=== PATIENT | female | born 1980 | race Two or more races ===

== ENCOUNTER 2016-08-02 13:23 | Emergency (ER) | payer SELFPAY ==
[~2016-08-02] VITALS: Wt 54.5 kg
[2016-08-02] MEDS ORDERED: SOD CHLORIDE 0.9% 1,000 ML IV STA (13:52)
[2016-08-02] MEDS ORDERED: METOCLOPRAMIDE 10 MG INJ IV STA (13:52)
[2016-08-02] MEDS ORDERED: DIPHENHYDRAMINE 50 MG INJ IV ONE (14:00)
--- NOTE | 2016-08-02 14:46 | ERD ---
ER Documentation Chief Complaint Date/Time DATE: 08/02/16 Chief Complaint Headache HPI The patient is a 36-year-old female with a history of HIV, who presents to the Emergency Department with complaint of headache for the past week. The patient reports that her headache was gradual in onset, and has been constant since presentation. She describes the pain as throbbing in nature, and localized mostly to the right side of the head, radiating throughout. She reports associated nausea and several episodes of nonbilious, nonbloody emesis. She had 4 episodes of vomiting today. She notes a history of prior headaches in the past , which generally resolve after administration of ibuprofen. However, since onset of this headache one week ago she has been taking ibuprofen with no significant relief. She notes that this headache is constant, and associated with body aches and chills. 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 At the time, her CD4 count was 45. She has since been followed up by her primary medical provider (in [place]) and had a repeat CT head performed 2 weeks ago (prior to travel to the ) at which time she was told that she no longer has any abnormal findings or any findings of Toxoplasmosis. She notes that she is on daily antiviral medications, and has a low viral load. Most recent CD4 is was 150. She denies any visual changes, diplopia, blurred vision or vision loss. Denies chest pain, palpitations, shortness of breath. Denies dizziness, weakness, lethargy or syncope. Denies any change in mentation. Denies any abdominal pain, diarrhea or dysuria. She does report urinary frequency, urgency, and right flank pain, however, that worsens upon vomiting. Denies neck pain. No other complaints at this time. ROS All systems reviewed and are negative except as per history of present illness. Medications Home Meds Active Scripts Ibuprofen* (Motrin*) 600 Mg Tab, 600 MG PO Q6, #30 TAB Prov:KAMALA GREWAL PA-C 08/02/16 Nitrofurantoin Monohyd Macrocr* (Macrobid*) 100 Mg Capsr, 100 MG PO BID for 7 Days, CAP Prov:KAMALA GREWAL PA-C 08/02/16 Ciprofloxacin Hcl* (Ciprofloxacin Hcl*) 500 Mg Tablet, 500 MG PO BID, #10 TAB Prov:CARMINAKAMALA SOEL 08/02/16 Allergies Allergies: Coded Allergies: No Known Allergy (Unverified , 08/02/16) PMhx/Soc Medical and Surgical Hx: pt denies Medical Hx, pt denies Surgical Hx Hx Alcohol Use: No Hx Substance Use: No Hx Tobacco Use: No Smoking Status: Never smoker Physical Exam Vitals Vital Signs Date Time Temp Pulse Resp B/P Pulse Ox O2 Delivery O2 Flow Rate FiO2 08/02/16 17:00 101.9 89 16 123/56 98 Room Air 08/02/16 13:26 98.3 89 18 121/67 100 Physical Exam GENERAL: Well-developed, well-nourished, female, in no acute distress. HEENT: Head is normocephalic, atraumatic. No scleral pallor or icterus. Pupils equal, round and reactive to light. Extraocular movements intact. Conjunctiva pink. No photophobia. Moist mucous membranes. NECK: Supple. No masses, no tenderness, no lymphadenopathy. Trachea midline. No nuchal rigidity. No meningismus. Full range of motion. RESPIRATORY: Lungs are clear to auscultation bilaterally. Equal breath sounds. Normal expiratory effort. CARDIOVASCULAR: Regular rate and rhythm. S1 and S2 normal. Distal pulses are palpable, 2+ bilaterally. Capillary refill is less than 2 seconds. GASTROINTESTINAL: Abdomen is soft, non-tender, and non-distended. No guarding, no rebound tenderness. Normal bowel sounds. FLANK: No CVA tenderness. BACK: No midline tenderness. EXTREMITIES: No clubbing, cyanosis, or edema. Normal skin perfusion. Moving all extremities. NEUROLOGIC: The patient is alert, awake, and oriented x 3. No focal neurologic deficits. Cranial nerves II through XII intact. Motor and sensation grossly intact. Speech is normal. Gait is observed and normal, no ataxia. No pronator drift. Coordination normal. INTEGUMENT: Skin is intact. Warm and dry. No rashes, no petechiae present. Normal turgor. PSYCHIATRIC: Normal mood and mentation. Result Diagram: 08/02/16 1450 08/02/16 1450 Results 24 hrs Laboratory Tests Test 08/02/16 14:35 08/02/16 14:50 Urine Color LT. YELLOW Urine Clarity SLIGHTLY CLOUDY Urine pH 7.0 Urine Specific [place] 1.015 Urine Ketones NEGATIVE Urine Nitrite NEGATIVE Urine Bilirubin NEGATIVE Urine Urobilinogen 0.2 E.U./dL Urine Leukocyte Esterase 1+ Urine Microscopic RBC NONE SEEN/HPF Urine Microscopic WBC 2-5/HPF Urine Squamous Epithelial Cells MODERATE Urine Amorphous Urates MANY Urine Bacteria FEW Urine Hemoglobin NEGATIVE Urine Glucose NEGATIVE% Urine Total Protein TRACE White Blood Count 3.810^3/ul Red Blood Count 4.2010^6/ul Hemoglobin 11.4g/dl Hematocrit 34.6% Mean Corpuscular Volume 82.4fl Mean Corpuscular Hemoglobin 27.1pg Mean Corpuscular Hemoglobin Concent 32.9g/dl Red Cell Distribution Width 13.7% Platelet Count 25680^3/UL Mean Platelet Volume 9.2fl Neutrophils % 61.2% Lymphocytes % 25.5% Monocytes % 11.5% Eosinophils % 1.0% Basophils % 0.5% Nucleated Red Blood Cells % 0.0/100WBC Neutrophils # 2.410^3/ul Lymphocytes # 1.010^3/ul Monocytes # 0.410^3/ul Eosinophils # 0.010^3/ul Basophils # 0.010^3/ul Nucleated Red Blood Cells # 0.010^3/ul Sodium Level 134mmol/L Potassium Level 3.6mmol/L Chloride Level 96mmol/L Carbon Dioxide Level 25mmol/L Anion Gap 17 Blood Urea Nitrogen 8mg/dl Creatinine 0.72mg/dl Glucose Level 108mg/dl Calcium Level 10.0mg/dl Total Bilirubin 0.0mg/dl Direct Bilirubin 0.00mg/dl Indirect Bilirubin 0.0mg/dl Aspartate Amino Transf (AST/SGOT) 21IU/L Alanine Aminotransferase (ALT/SGPT) 32IU/L Alkaline Phosphatase 91IU/L Total Protein 9.6g/dl Albumin 4.6g/dl Globulin 5.00g/dl Albumin/Globulin Ratio 0.92 Current Medications Medications (Trade) Dose Ordered Sig/Esthela Route PRN Reason Start Time Stop Time Status Last Admin Dose Admin Sodium Chloride (NS) 1,000 ml @ 1,000 mls/hr Q1H STAT IV 08/02/16 13:52 08/02/16 14:51 DC 08/02/16 15:13 Metoclopramide HCl (Reglan) 10 mg ONCE STAT IV 08/02/16 13:52 08/02/16 13:55 DC 08/02/16 15:13 Diphenhydramine HCl (Benadryl) 12.5 mg ONCE ONCE IV 08/02/16 14:00 08/02/16 14:01 DC 08/02/16 15:13 Ketorolac Tromethamine 30 mg 30 mg ONCE STAT IV 08/02/16 16:00 08/02/16 16:01 DC 08/02/16 16:15 Ceftriaxone Sodium (Rocephin) 50 ml @ 100 mls/hr ONCE ONCE IVPB 08/02/16 16:00 08/02/16 16:29 DC 08/02/16 16:15 Morphine Sulfate 4 mg 4 mg ONCE STAT IV 08/02/16 16:13 08/02/16 16:15 DC Acetaminophen (Ofirmev 1000mg/ 100ml Iv) 100 ml @ 400 mls/hr ONCE ONCE IVPB 08/02/16 17:30 08/02/16 17:30 DC Acetaminophen (Tylenol Tab) 500 mg STK-MED ONCE .ROUTE 08/02/16 17:03 08/02/16 17:04 DC Acetaminophen (Tylenol Tab) 1,000 mg ONCE STAT PO 08/02/16 17:05 08/02/16 17:07 DC 08/02/16 17:19 Procedures/MDM The patient's case was reviewed at length with ED supervising physician, Dr. Marx, who recommended laboratory testing, urinalysis, CT head without contrast , IV NaCl/Toradol/Benadryl/Reglan. However, patient refusing CT imaging, stating that she recently (2 weeks ago) had CT imaging which was negative, and wants to avoid radiation exposure and the costs associated. Patient also refusing lumbar puncture. This was discussed with Dr. Marx as well. Patient's urinalysis revealed 1+ urine leukocyte esterase and few WBC. Dr. Marx spoke with patient bedside. Given right flank pain (though no CVA tenderness), recent vomiting, body aches, chills, urinary frequency/urgency and headache, he believes patient's symptoms to be most consistent with urinary tract infection, possibly early ascending infection. Recommends IV Rocephin in the ED and then discharge with Ciprofloxacin and Macrobid. Strict return precautions given. MEDICAL DECISION MAKING: This is a 36-year-old female presenting to the emergency department with a headache. The patient also has recent development of urinary frequency, urgency and right flank pain. She has been experiencing some nausea and vomiting with her headache as well. She had no significant abnormalities on physical examination, exhibited no altered mental status, neurologic deficits or meningeal signs. The differential diagnosis includes, but is not limited to, subarachnoid hemorrhage, intracerebral bleeding, cerebral aneurysm, meningitis, encephalitis, brain abscess, embolic stroke, brain tumor, temporal arteritis, sinusitis, migraine headache, tension headache , acute glaucoma, cluster headache, pseudotumor cerebri, encephalopathy. Her condition improved during er stay. After rest and administration of fluids, Toradol, Benadryl, Reglan and fluids the patient reports no new complaints and resolved pain. Urinalysis performed revealed 1+ urine leukocyte esterase with 2- 5 WBCs and some bacteria, concerning for urinary tract infection. Rocephin 1 gram IV administered. Upon my review and interpretation of the patient's presentation and overall ER course, I believe the patient's symptoms are most consistent with a headache, now resolved, right flank pain and urinary tract infection. CT imaging and lumbar puncture offered to patient, but was declined/refused. At this time the patient is in stable condition and no longer experiencing any pain/headache, and therefore she can be discharged home with a prescription for ibuprofen, Macrobid and Ciprofloxacin and strict return precautions for signs of deteriorating or worsening condition. She is advised to follow up with a primary care provider for reevaluation and further management within 1-2 days, or to return to the ER sooner for any worsening symptoms. I shared my medical decision making and plan with the patient at length and in great detail, and the patient verbally understands and agrees with the plan for further observation and care as an outpatient. At the time of discharge, all questions were answered. Departure Diagnosis: Primary Impression: Headache Headache type: unspecified Headache chronicity pattern: acute headache Intractability: not intractable Qualified Code: R51 - Acute nonintractable headache, unspecified headache type Additional Impressions: Right flank pain Urinary tract infection Urinary tract infection type: acute cystitis Hematuria presence: without hematuria Qualified Code: N30.00 - Acute cystitis without hematuria Condition: Stable Patient Instructions: Headache, Unspecified, Pyelonephritis, Female (Adult), Self-Care for Headaches, Understanding Urinary Tract Infections (UTIs) Additional Instructions: Llame al doctor MAANA y ventura kyle ERIKA PARA DENTRO DE 1-2 STAFFORD.Dgale a la secretaria que nosotros le instruimos hacer esta erika.Avise o llame si [place] condicin se empeora antes de la erika. Regresa aqui si peor o no mejor. KAMALA GREWAL PA-C August 02, 2016 14:46
[2016-08-02 15:01] LABS: ADD UMIC YES; URINE BILIRUBIN (Dip) NEGATIVE (NEGATIVE); URINE BLOOD (Dip) NEGATIVE (NEGATIVE); URINE COLOR LT. YELLOW (YELLOW); URINE GLUCOSE (Dip) NEGATIVE (NEGATIVE); URINE KETONES (Dip) NEGATIVE (NEGATIVE); URINE LEUKOCYTE ESTERASE (Dip) 1+ (NEGATIVE); URINE NITRITE (Dip) NEGATIVE (NEGATIVE); URINE TOTAL PROTEIN (Dip) TRACE (NEGATIVE); URINE UROBILINOGEN (Dip) 0.2 E.U./dL (0.1-1.0)
[2016-08-02 15:08] LABS: ADD SCAN DIFF NO
[2016-08-02 15:10] LABS: BASOPHILS % 0.5 % (0.0-2.0); HEMATOCRIT 34.6 % (37.0-47.0); HEMOGLOBIN 11.4 g/dl (12.0-16.0); LYMPHOCYTES % 25.5 % (15.0-51.0); MEAN CORPUSCULAR HEMOGLOBIN 27.1 pg (29.0-33.0); MEAN CORPUSCULAR HGB CONC 32.9 g/dl (32.0-37.0); MEAN CORPUSCULAR VOLUME 82.4 fl (82.0-101.0); MEAN PLATELET VOLUME 9.2 fl (7.4-10.4); MONOCYTE # 0.4 10^3/ul (0.3-0.9); MONOCYTES % 11.5 % (0.0-11.0); NEUTROPHIL # 2.4 10^3/ul (1.6-7.5); NEUTROPHILS % 61.2 % (39.0-77.0); PLATELET COUNT 298 10^3/UL (140-415); RED CELL DISTRIBUTION WIDTH 13.7 % (11.5-14.5); WHITE BLOOD COUNT 3.8 10^3/ul (4.8-10.8)
[2016-08-02 15:24] LABS: BACTERIA,URINE FEW; SQUAMOUS EPITHELIAL CELL,UR MODERATE
[2016-08-02 15:25] LABS: URINE RBCS NONE SEEN /HPF (0)
[2016-08-02 15:36] LABS: ALBUMIN 4.6 g/dl (3.3-4.9); ALBUMIN/GLOBULIN RATIO 0.92; CREATININE 0.72 mg/dl (0.44-1.00); POTASSIUM 3.6 mmol/L (3.5-5.1); TOTAL PROTEIN 9.6 g/dl (6.1-8.1)
[2016-08-02] MEDS ORDERED: KETOROLAC 30 MG INJ IV STA (16:00)
[2016-08-02] MEDS ORDERED: CEFTRIAXONE 1 GM/50 ML (PMX) 50 ML IVPB ONE (16:00)
[2016-08-02] MEDS ORDERED: morphine 4 MG/ML VIAL IV STA (16:13)
[2016-08-02] MEDS ORDERED: CIPR500T4 PO (16:14)
[2016-08-02] MEDS ORDERED: IBUP-1542 PO (16:15)
[2016-08-02] MEDS ORDERED: NITR-58 PO (16:15)
[2016-08-02 17:00] VITALS: BP 123/56; PULSE 89; RESP 16; TEMP 101.9
[2016-08-02] MEDS ORDERED: ACETAMINOPHEN 500 MG TAB ONE (17:03)
[2016-08-02] MEDS ORDERED: ACETAMINOPHEN 500 MG TAB PO STA (17:05)
[2016-08-02] MEDS ORDERED: ACETAMINOPHEN 1000MG/100ML IV 100 ML IVPB ONE (17:30)
== END 2016-08-02 17:00 | disposition home or self-care (01) ==
LOC: FTE 13:23
DX: R51 Headache (principal); R10.9 Unspecified abdominal pain; N30.00 Acute cystitis without hematuria
CPT/HCPCS: 80053; 81001; 85025; 87086; J0696; J1200; J1885; J2765; J7030; 36415; 96374; 96375; J0131